=== PATIENT | female | born 1945 | race Two or more races ===

== ENCOUNTER 2024-03-19 06:57 | Emergency (ER) | payer OTHER ==
[~2024-03-19] VITALS: Ht 165.1 cm; Wt 59.9 kg
[2024-03-19] MEDS ORDERED: NORVASC2.5 MG PO (07:41)
[2024-03-19] MEDS ORDERED: VALSARTAN-HCTZ1 EAC1 PO (07:42)
[2024-03-19] MEDS ORDERED: METRONIDAZOLE/SODIUM CHLORIDE 500 MG/100 ML PIGGYBACK IV ONE ×2 (08:25→08:30)
[2024-03-19] MEDS ORDERED: BARIUM SULFATE 450 ML ORAL.SUSP PO ONE (08:29)
[2024-03-19 08:59] LABS: HEMATOCRIT 45.6 % (36.0-45.00); HEMOGLOBIN 15.4 g/dL (12.0-15.00); MEAN CELL VOLUME 93.7 fL (80.00-100.00); MEAN CORPUSCULAR HEMOGLOBIN 31.6 pg (27.00-32.0); MEAN CORPUSCULAR HGB CONC 33.7 g/dl (32.0-36.0); PLATELET COUNT 166 K/uL (150-450); RED BLOOD COUNT 4.87 M/uL (4.00-6.00)
[2024-03-19 09:43] LABS: ALBUMIN 4.2 gm/dL (3.4-5.0); BILIRUBIN TOTAL 0.84 mg/dL (0.3-1.2); CALCIUM 9.8 mg/dL (8.5-10.1); CREATININE SERUM 0.67 mg/dL (0.55-1.02); GFR 85.35; GLOBULINA 3.7 G/DL (2.4-3.5); POTASSIUM 3.58 mEq/L (3.5-5.1); TOTAL PROTEIN 7.9 gm/dL (6.4-8.2)
[2024-03-19 10:29] LABS: URINE APPEARANCE Cloudy; URINE BILIRRUBIN Negative (NEGATIVE); URINE BLOOD Negative; URINE COLOR Yellow; URINE GLUCOSE Negative (NEGATIVE); URINE KETONE Trace (NEGATIVE); URINE LEUKOCYTE Small; URINE NITRATE Positive; URINE PROTEIN 30 (NEGATIVE); URINE UROBILINOGEN 0.2 E.U./dl
[2024-03-19 10:37] LABS: URINE EPITHELIAL CELLS 26.1 uL (0.0-38.8); URINE WBC 119.4 uL (0.0-23.2)
[2024-03-19 11:09] LABS: URINE BACTERIA > 9821.5 uL (0.0-1933); URINE CAST 0.29 uL (0.0-1.40)
== END 2024-03-19 14:00 | disposition home or self-care (01) ==
LOC: ER 06:59
PROVIDERS: Emergency Medicine
DX: K57.92 Diverticulitis of intestine, part unspecified, without perforation or abscess without bleeding (principal); R10.32 Left lower quadrant pain; R10.9 Unspecified abdominal pain; I10 Essential (primary) hypertension; Z88.8 Allergy status to other drugs, medicaments and biological substances
CPT/HCPCS: 36415; 74177; 96365; 99284; J3490; Q9965